=== PATIENT | female | born 1970 | race Caucasian/White ===

== ENCOUNTER 2017-08-23 07:55 | Emergency (ER) | payer SELFPAY ==
[2017-08-23 08:18] VITALS: BP 135/90
== END 2017-08-23 12:05 ==
LOC: ED 07:55
DX: R51 Headache (principal); Z53.21 Procedure and treatment not carried out due to patient leaving prior to being seen by health care provider

== ENCOUNTER 2017-09-03 16:10 | Emergency (ER) | payer SELFPAY ==
[2017-09-03 16:53] VITALS: BP 135/94
--- NOTE | 2017-09-03 19:12 | Emergency Department Report ---
Blank Doc - Documentation Documentation: 47-year-old female presents to the hospital left ear pain 1 month. She is also having a productive cough for several days. No fever reported. Patient also started her cycle and reports heavier than normal vaginal bleeding associated dizziness and fatigue. Patient has left ear cerumen impaction likely cause of pain. Given symptoms of heavy bleeding and dizziness the following were ordered. Chest x-ray, CBC, BMP, hCG. Mid level to follow-up and disposition
[2017-09-03 19:57] LABS: Basophils # (Auto) 0.1 K/mm3 (0.0-0.1); Basophils % (Auto) 0.8 % (0.0-1.8); Eosinophils # (Auto) 0.4 K/mm3 (0.0-0.4); Eosinophils % (Auto) 4.2 % (0.0-4.3); Hematocrit 39.7 % (30.3-42.9); Hemoglobin 13.1 gm/dl (10.1-14.3); Lymphocytes % (Auto) 32.4 % (13.4-35.0); Mean Corpuscular HGB Conc 33 % (30-34); Mean Corpuscular Hemoglobin 28 pg (28-32); Mean Corpuscular Volume 83 fl (79-97); Monocytes # (Auto) 0.8 K/mm3 (0.0-0.8); Monocytes % (Auto) 8.1 % (0.0-7.3); Platelet Count 341 K/mm3 (140-440); Red Blood Count 4.77 M/mm3 (3.65-5.03); Red Cell Distribution Width 15.4 % (13.2-15.2)
[2017-09-03 20:10] LABS: BUN/Creatinine Ratio 30; Blood Urea Nitrogen 15 mg/dL (7-17); Calcium 8.8 mg/dL (8.4-10.2); Hemolysis Index 5
--- NOTE | 2017-09-03 20:46 | XRay Report ---
FINAL REPORT EXAM: XR CHEST ROUTINE 2V HISTORY: cough TECHNIQUE: Two view chest PA and lateral PRIORS: None. FINDINGS: Cardiac and mediastinal contours are unremarkable. No focal pulmonary infiltrate is identified. No pleural fluid collection seen. Pulmonary vasculature is unremarkable. Calcified granuloma noted in the right IMPRESSION: Negative two-view chest
--- NOTE | 2017-09-03 22:00 | Emergency Department Report ---
- General Chief Complaint: Upper Respiratory Infection Stated Complaint: LEFT EAR PAIN Time Seen by Provider: 09/03/17 19:02 Source: patient Mode of arrival: Ambulatory Limitations: Language Barrier - History of Present Illness Initial Comments: 47-year-old female comes in for complaint of productive cough sore throat chest and back pain with coffee a left earache times one month. Patient also reports that she's had have repeated normal cycles daily. Starting yesterday. She reports that her cramps are little worse than usual. She rates her pain 8 out of 10. MD Complaint: cough, sore throat -: month(s) (1) Severity: severe Severity scale (0 -10): 8 Quality: aching Consistency: intermittent Worsens With: other (coughing) - Related Data Previous Rx's Medication Instructions Recorded Last Taken Type Doxycycline Monohydrate 100 mg PO Q12H #20 capsule 11/29/14 Unknown Rx [Doxycycline Monohydrate CAP] Promethazine /Codeine 5 ml PO Q6H PRN #120 ml 11/29/14 Unknown Rx [Phenergan/Codeine 6.25-10 mg/5Ml] Pantoprazole Sodium [Protonix] 20 mg PO BID #60 tablet. 12/25/14 Unknown Rx Acetaminophen/Codeine [Tylenol 1 tab PO Q4HR PRN #12 tablet 09/03/17 Unknown Rx /Codeine # 3 tab] Amoxicillin 500 mg PO BID 10 Days #20 capsule 09/03/17 Unknown Rx Allergies Allergy/AdvReac Type Severity Reaction Status Date / Time magnesium Allergy Unknown Itching Verified 09/03/17 16:53 ED Review of Systems ROS: Stated complaint: LEFT EAR PAIN Other details as noted in HPI ENT: ear pain (left), throat pain Respiratory: cough Cardiovascular: chest pain (with coughing) Endocrine: no symptoms reported Gastrointestinal: denies: abdominal pain, nausea, diarrhea Genitourinary: denies: urgency, dysuria, discharge Musculoskeletal: back pain (mid upper back) Skin: denies: rash, lesions Neurological: denies: headache, weakness, paresthesias Psychiatric: denies: anxiety, depression Hematological/Lymphatic: denies: easy bleeding, easy bruising ED Past Medical Hx - Past Medical History Previous Medical History?: Yes Hx Psychiatric Treatment: Yes (Anxiety) Additional medical history: hx of right sided paralysis - Surgical History Past Surgical History?: Yes Additional Surgical History: - Social History Smoking Status: Never Smoker Substance Use Type: None - Medications Home Medications: Home Medications Medication Instructions Recorded Confirmed Last Taken Type Doxycycline Monohydrate 100 mg PO Q12H #20 capsule 11/29/14 Unknown Rx [Doxycycline Monohydrate CAP] Promethazine /Codeine 5 ml PO Q6H PRN #120 ml 11/29/14 Unknown Rx [Phenergan/Codeine 6.25-10 mg/5Ml] Pantoprazole Sodium [Protonix] 20 mg PO BID #60 tablet.dr 12/25/14 Unknown Rx Acetaminophen/Codeine [Tylenol 1 tab PO Q4HR PRN #12 tablet 09/03/17 Unknown Rx /Codeine # 3 tab] Amoxicillin 500 mg PO BID 10 Days #20 capsule 09/03/17 Unknown Rx ED Physical Exam - General Limitations: Language Barrier General appearance: alert, in no apparent distress - Head Head exam: Present: atraumatic, normocephalic - Eye Eye exam: Present: normal appearance, EOMI - ENT ENT exam: Present: mucous membranes moist - Expanded ENT Exam Expanded TM/Canal exam: Cerumen Impaction: Left TM Mouth exam: Present: normal external inspection Teeth exam: Present: normal inspection Throat exam: Positive: normal inspection - Neck Neck exam: Present: normal inspection - Respiratory Respiratory exam: Present: normal lung sounds bilaterally. Absent: respiratory distress - Cardiovascular Cardiovascular Exam: Present: regular rate, normal rhythm. Absent: systolic murmur, diastolic murmur, rubs, gallop - GI/Abdominal GI/Abdominal exam: Present: soft, normal bowel sounds - Extremities Exam Extremities exam: Present: normal inspection - Back Exam Back exam: Present: normal inspection, tenderness (mid upper back) - Neurological Exam Neurological exam: Present: alert, oriented X3, normal gait - Psychiatric Psychiatric exam: Present: normal affect, normal mood - Skin Skin exam: Present: warm, dry, intact, normal color. Absent: rash ED Course Vital Signs 09/03/17 16:48 Temperature 98.1 F Pulse Rate 88 Respiratory 16 Rate Blood Pressure 135/94 O2 Sat by Pulse 98 Oximetry ED Medical Decision Making - Lab Data Result diagrams: 09/03/17 19:19 09/03/17 19:19 - Radiology Data Radiology results: report reviewed, image reviewed FINDINGS: Cardiac and mediastinal contours are unremarkable. No focal pulmonary infiltrate is identified. No pleural fluid collection seen. Pulmonary vasculature is unremarkable. Calcified granuloma noted in the right IMPRESSION: Negative two-view chest Transcribed By: SHAMIR Dictated By: RAMONITA NGUYEN MD Electronically Authenticated By: RAMONITA NGUYEN MD Signed Date/Time: 09/03/17 4991 - Medical Decision Making Patient has been evaluated by this provider as well as Dr. Crum. Patient had CBC CMP and urinalysis done. Chest x-ray within normal limits. We will do a ear irrigation of the left ear as well as the right. Will place patient on amoxicillin for otitis media presumptive. Critical care attestation.: If time is entered above; I have spent that time in minutes in the direct care of this critically ill patient, excluding procedure time. ED Disposition Clinical Impression: URI, acute Disposition: [id number]-01 TO HOME OR SELFCARE Is pt being admited?: No Does the pt Need Aspirin: No Condition: Stable Instructions: Upper Respiratory Infection (ED) Additional Instructions: Take medication as prescribed. Follow-up with [facility] for further evaluation. Prescriptions: Acetaminophen/Codeine [Tylenol /Codeine # 3 tab] 1 tab PO Q4HR PRN #12 tablet PRN Reason: Pain Amoxicillin 500 mg PO BID 10 Days #20 capsule Referrals: PRIMARY CARE, [Primary Care Provider] - 3-5 Days Print Language: TURKISH
== END 2017-09-03 22:29 | disposition home or self-care (01) ==
LOC: ED 16:10
DX: J06.9 Acute upper respiratory infection, unspecified (principal); H92.02 Otalgia, left ear; Z88.8 Allergy status to other drugs, medicaments and biological substances
CPT/HCPCS: 36415; 71046; 80048; 84703; 85025; 99284